=== PATIENT | female | born 1940 | race Caucasian/White ===

== ENCOUNTER → 2021-10-15 | Outpatient (CLI) | payer MEDICARE | LOC: US 14:53 | PROVIDERS: ATTEND Urology | DX: N39.0 Urinary tract infection, site not specified (principal); N23 Unspecified renal colic | CPT/HCPCS: 74018; 76770; 76857 ==

== ENCOUNTER 2023-02-26 12:09 | Observation (INO) | payer MEDICARE ==
[~2023-02-26] VITALS: Ht 165.1 cm; Wt 60.3 kg
[2023-02-26] MEDS ORDERED: SODIUM CHLORIDE 0.9% 1000ML 1,000 ML IV STA (12:29)
[2023-02-26 12:54] LABS: BASOPHILS % 0.3 % (0.0-1.0); EOSINOPHILS % 0.5 % (0.0-6.0); HEMATOCRIT 36.6 % (34.2-44.1); HEMOGLOBIN 12.6 g/dL (12.0-16.0); LYMPHOCYTES # (AUTO) 1.1 (1.0-3.2); LYMPHOCYTES % 29.1 % (18.0-39.1); MEAN CORPUSCULAR HEMOGLOBIN 29.9 pg (28-32); MEAN CORPUSCULAR HGB CONC 34.4 g/dL (31-35); MEAN CORPUSCULAR VOLUME 86.9 fL (81-99); MONOCYTES # (AUTO) 0.3 (0.2-0.8); MONOCYTES % 7.9 % (4.4-11.3); NEUTROPHILS # (AUTO) 2.4 (2.1-6.9); NEUTROPHILS % 61.9 % (38.7-80.0); PLATELET COUNT 124 x10e3/uL (140-360); RED BLOOD COUNT 4.21 x10e6/uL (3.6-5.1); RED CELL DISTRIBUTION WIDTH 12.9 % (11.7-14.4); WHITE BLOOD COUNT 3.92 x10e3/uL (4.8-10.8)
[2023-02-26 12:59] LABS: CLARITY,URINE CLEAR (CLEAR); COLOR,URINE YELLOW (YELLOW); KETONES,URINE NEGATIVE (NEGATIVE); LEUKOCYTE ESTERASE ,URINE NEGATIVE (NEGATIVE); NITRITE,URINE NEGATIVE (NEGATIVE); PROTEIN,URINE DIPSTICK NEGATIVE (NEGATIVE); URINE UROBILINOGEN 1 mg/dL (0.2 - 1)
[2023-02-26 13:08] LABS: EPITHELIAL CELLS,URINE RARE /LPF; RBC,URINE 0-5 /HPF (0-5)
[2023-02-26 13:13] LABS: ALBUMIN 4.3 g/dL (3.5-5.0); ALBUMIN/GLOBULIN RATIO 1.7 (0.8-2.0); ANION GAP 12.7 mmol/L (8-16); CALCIUM 9.4 mg/dL (8.4-10.2); CREATININE, SERUM 0.72 mg/dL (0.57-1.11); MAGNESIUM 1.8 MG/DL (1.3-2.1); POTASSIUM 3.7 mmol/L (3.5-5.1)
[2023-02-26] MEDS ORDERED: IOPAMIDOL 370 MG/ML 100 ML INFUS..BTL INJ ONE (13:28)
[2023-02-26] MEDS ORDERED: ONDANSETRON HCL INJ 2MG/ML 2ML 2 MG/ML VIAL IV PRN (16:00)
[2023-02-26 17:53] VITALS: BP 174/79; PULSE 63; RESP 18; TEMP 97.9; O2SAT 100
[2023-02-26] MEDS: FAMOTIDINE 20 MG/2 ML VIAL IV SCH (18:34)
[2023-02-26] MEDS ORDERED: [UNRECOGNIZED DRUG - OTHER] (18:42)
[2023-02-26] MEDS ORDERED: CIPRO250 MG PO (18:42)
[2023-02-26] MEDS ORDERED: FLOMAX0.4 MG PO (18:42)
[2023-02-26 18:54] VITALS: BP 174/79; PULSE 63; RESP 18; TEMP 97.9; O2SAT 100
[2023-02-26 19:54] VITALS: BP 157/69; PULSE 67; RESP 21; TEMP 97.6; O2SAT 98
[2023-02-26 23:10] VITALS: BP 157/69; PULSE 67; RESP 21; TEMP 97.6; O2SAT 98
[2023-02-27] VITALS: BP 125/63; PULSE 67; RESP 16; TEMP 98.1; O2SAT 97
[2023-02-27 00:15] LABS: CREATINE KINASE 45 IU/L (29-168)
[2023-02-27 04:00] VITALS: BP 137/70; PULSE 63; RESP 18; TEMP 97.7; O2SAT 96
[2023-02-27] MEDS: FAMOTIDINE 20 MG/2 ML VIAL IV SCH (04:32)
[2023-02-27 06:11] LABS: BASOPHILS % 0.9 % (0.0-1.0); EOSINOPHILS # (AUTO) 0.1 (0.0-0.4); EOSINOPHILS % 1.4 % (0.0-6.0); HEMATOCRIT 32.2 % (34.2-44.1); HEMOGLOBIN 11.8 g/dL (12.0-16.0); LYMPHOCYTES # (AUTO) 1.6 (1.0-3.2); LYMPHOCYTES % 38.3 % (18.0-39.1); MEAN CORPUSCULAR HEMOGLOBIN 32.6 pg (28-32); MEAN CORPUSCULAR HGB CONC 36.6 g/dL (31-35); MONOCYTES # (AUTO) 0.4 (0.2-0.8); MONOCYTES % 9.6 % (4.4-11.3); NEUTROPHILS # (AUTO) 2.1 (2.1-6.9); NEUTROPHILS % 49.8 % (38.7-80.0); PLATELET COUNT 138 x10e3/uL (140-360); RED BLOOD COUNT 3.62 x10e6/uL (3.6-5.1); RED CELL DISTRIBUTION WIDTH 13.7 % (11.7-14.4); WHITE BLOOD COUNT 4.26 x10e3/uL (4.8-10.8)
[2023-02-27 06:26] LABS: CREATINE KINASE 44 IU/L (29-168)
[2023-02-27 06:28] LABS: ALBUMIN 3.6 g/dL (3.5-5.0); ALBUMIN/GLOBULIN RATIO 1.4 (0.8-2.0); ANION GAP 11.4 mmol/L (8-16); CALCIUM 8.9 mg/dL (8.4-10.2); CHOL/HDL RATIO 2.4 (3.0-3.6); CREATININE, SERUM 0.66 mg/dL (0.57-1.11); POTASSIUM 3.4 mmol/L (3.5-5.1)
[2023-02-27 08:00] VITALS: BP 148/75; PULSE 58; RESP 17; TEMP 98.1; O2SAT 100
[2023-02-27 09:18] VITALS: BP 148/75; PULSE 58; RESP 17; TEMP 98.1; O2SAT 100
[2023-02-27 11:07] LABS: EOSINOPHILS % (MANUAL) 1 % (0-7); LYMPHOCYTES % (MANUAL) 29 % (19-48); MONOCYTES % (MANUAL) 14 % (3.4-9.0); NEUTROPHILS % (MANUAL) 54 % (40-74); PLATELET ESTIMATE SLIGHTLY DECREASED; PLATELET MORPHOLOGY COMMENT NORMAL
== END 2023-02-27 15:09 | disposition left against medical advice (07) ==
LOC: ER 12:15 → ERHOLD 15:50 → MED/SURG2 17:37
PROVIDERS: ADMIT Internal Medicine; ATTEND Internal Medicine
DX: N13.30 Unspecified hydronephrosis (principal); I31.39 Other pericardial effusion (noninflammatory); Z53.29 Procedure and treatment not carried out because of patient's decision for other reasons; K57.30 Diverticulosis of large intestine without perforation or abscess without bleeding; N32.81 Overactive bladder; I08.8 Other rheumatic multiple valve diseases; I49.1 Atrial premature depolarization; Z87.440 Personal history of urinary (tract) infections
CPT/HCPCS: 36415 ×2; 74176; 74177; 80053 ×2; 80061; 81001; 82550 ×2; 83735; 83880; 84484 ×2; 85025 ×2; 87086; 93005; 93306; 99284; G0378 ×2; J2405; J7030; Q9967; U0002

== ENCOUNTER → 2023-03-11 | Outpatient (REF) | payer MEDICARE ==
[~2023-03-11] MED LIST: CIPRO250 MG PO; FLOMAX0.4 MG PO; [UNRECOGNIZED DRUG - OTHER]
== END ==
LOC: US 09:31
PROVIDERS: ATTEND Urology
DX: N39.0 Urinary tract infection, site not specified (principal); N23 Unspecified renal colic; R35.1 Nocturia
CPT/HCPCS: 74018; 76770; 76857

== ENCOUNTER → 2024-02-22 | Outpatient (REF) | payer MEDICARE | LOC: US 12:32 | PROVIDERS: ATTEND Urology | DX: N39.0 Urinary tract infection, site not specified (principal) | CPT/HCPCS: 74018; 76770; 76857 ==

== ENCOUNTER → 2024-03-19 | Outpatient (REF) | payer MEDICARE | LOC: CT 14:01 | PROVIDERS: ATTEND Urology | DX: N20.0 Calculus of kidney (principal) | CPT/HCPCS: 74176 ==